=== PATIENT | female | born 1990 | race Caucasian/White ===

== ENCOUNTER 2018-02-20 19:33 | Inpatient (IN) ==
[2018-02-20] MEDS ORDERED: ACETAMINOPHEN 500 MG TABLET PO STA (21:20)
[2018-02-20] MEDS ORDERED: SODIUM CHLORIDE 0.9% 1,000 ML IV STA (21:20)
[2018-02-20] MEDS ORDERED: methylPREDNISolone SOD SUC 40 MG/1 ML VIAL IV STA (21:20)
[2018-02-20] MEDS ORDERED: ALBUTEROL/IPRATROPIUM 3 ML NEB RESP TX STA ×2 (21:20→21:48)
[2018-02-20] MEDS ORDERED: methylPREDNISolone SOD SUC 125 MG/2 ML VIAL IM STA (21:43)
[2018-02-20] MEDS ORDERED: ACETAMINOPHEN 500 MG TABLET ONE (21:52)
[2018-02-20] MEDS ORDERED: methylPREDNISolone SOD SUC 125 MG/2 ML VIAL ONE (21:52)
[2018-02-20 21:54] LABS: Basophils % 0.3 % (0.0-0.8); Eosinophils # 0.1 10*3/uL (0.0-0.87); Eosinophils % 0.3 % (0.00-10.9); Hematocrit 39.7 VOL% (35.7-47.0); Hemoglobin 13.1 GM/DL (12.0-16.0); Immature Granulocytes % 0.5 %; Immature Granulocytes Absolute 0.08 #; Lymphocytes # 4.7 10*3/uL (1.4-4.0); Lymphocytes % 31.5 % (21.3-54.2); Mean Corpuscular Hemoglobin 31 PG (27-34); Mean Corpuscular Volume 94.3 FL (87-102); Mean Platelet Volume 9.1 FL (9.6-12.0); Monocytes # 0.9 10*3/uL (0.11-0.8); Monocytes % 6.3 % (1.7-12.7); Neutrophils # 9.1 10*3/uL (1.4-7.4); Neutrophils % 61.1 % (38.7-73.9); Platelet Count 373 T/CUMM (130-400); Red Blood Count 4.21 MC/CUMM (3.8-5.5); Red Cell Distribution Width 13.3 % (9.3-17.3); White Blood Count 14.9 T/CUMM (4-12)
[2018-02-20 22:10] LABS: Calcium 9.4 MG/DL (8.5-10.1); Osmolality,Calculated 279.4 MOS/KG (273-304); Potassium 4.1 MMOL/L (3.5-5.1)
[2018-02-20] MEDS ORDERED: ALBUTEROL NEB SOLN 5 MG/ML 20 ML/BOTTLE CONT NEB STA (22:38)
[2018-02-20] MEDS ORDERED: LEVALBUTEROL 1.25 MG/3 ML NEB RESP TX STA (23:03)
[2018-02-20] MEDS ORDERED: NICOTINE 21 MG/24 HR PATCH TRANSDERM PRN (23:53)
[2018-02-20] MEDS ORDERED: guaiFENesin/DM ER 600-30 MG TABLET PO PRN (23:53)
[2018-02-20] MEDS ORDERED: ONDANSETRON 4 MG/2 ML VIAL IV PRN (23:53)
[2018-02-20] MEDS ORDERED: diphenhydrAMINE CAP 25 MG CAPSULE PO PRN (23:53)
[2018-02-20] MEDS ORDERED: ACETAMINOPHEN 325 MG TABLET PO PRN (23:53)
[2018-02-20] MEDS ORDERED: guaiFENesin/CODEINE 5 ML LIQUID PO PRN (23:56)
[2018-02-20] MEDS ORDERED: BENZONATATE 100 MG CAPSULE PO PRN (23:56)
[2018-02-21] MEDS ORDERED: MAGNESIUM SULF RIDER 1 GM in PREMIX 1 EACH IV ONE (02:00)
[2018-02-21] MEDS: ALBUTEROL/IPRATROPIUM 3 ML NEB RESP TX SCH ×6 (02:33→23:08)
[2018-02-21] MEDS: SODIUM CHLORIDE 0.9% 1,000 ML IV SCH ×2 (03:55→17:49)
[2018-02-21] MEDS ORDERED: ALBUTEROL 2.5 MG/3 ML NEB RESP TX PRN (05:28)
[2018-02-21] MEDS: MORPHINE 4 MG/1 ML VIAL IV PRN (06:04)
[2018-02-21] MEDS: AZITHROMYCIN INJ 500 MG in SODIUM CHLORIDE 0.9% 250 ML IV SCH (06:56)
[2018-02-21 07:14] LABS: Basophils % 0.2 % (0.0-0.8); Hematocrit 38.8 VOL% (35.7-47.0); Hemoglobin 12.7 GM/DL (12.0-16.0); Immature Granulocytes % 1.2 %; Immature Granulocytes Absolute 0.14 #; Lymphocytes # 1.7 10*3/uL (1.4-4.0); Lymphocytes % 14.7 % (21.3-54.2); Mean Corpuscular HGB Conc 32.7 GM/DL (32-36); Mean Corpuscular Hemoglobin 31 PG (27-34); Mean Corpuscular Volume 95.1 FL (87-102); Mean Platelet Volume 9.2 FL (9.6-12.0); Monocytes # 0.3 10*3/uL (0.11-0.8); Monocytes % 2.7 % (1.7-12.7); Neutrophils # 9.4 10*3/uL (1.4-7.4); Neutrophils % 81.2 % (38.7-73.9); Platelet Count 351 T/CUMM (130-400); Red Blood Count 4.08 MC/CUMM (3.8-5.5); Red Cell Distribution Width 13.3 % (9.3-17.3); White Blood Count 11.5 T/CUMM (4-12)
[2018-02-21] MEDS: PANTOPRAZOLE 40 MG TABLET PO SCH (08:03)
[2018-02-21] MEDS: ALPRAZolam 0.25 MG TABLET PO SCH ×2 (08:03→21:42)
[2018-02-21] MEDS: cefTRIAXone 1,000 MG in SYRINGE 1 EACH IV SCH (13:37)
[2018-02-21] MEDS: MONTELUKAST 10 MG TABLET PO SCH ×2 (13:37→21:42)
[2018-02-21] MEDS: NICOTINE 21 MG/24 HR PATCH TRANSDERM SCH (13:37)
[2018-02-21] MEDS ORDERED: ESCITALOPRAM 10 MG TABLET PO SCH (21:00)
[2018-02-22] MEDS: MORPHINE 4 MG/1 ML VIAL IV PRN ×3 (01:05→22:51)
[2018-02-22] MEDS: ALBUTEROL/IPRATROPIUM 3 ML NEB RESP TX SCH ×6 (03:22→23:34)
[2018-02-22] MEDS ORDERED: ALPRAZolam 0.25 MG TABLET PO ONE (04:44)
[2018-02-22] MEDS: methylPREDNISolone SOD SUC 40 MG/1 ML VIAL IV SCH ×3 (06:18→22:01)
[2018-02-22] MEDS: AZITHROMYCIN INJ 500 MG in SODIUM CHLORIDE 0.9% 250 ML IV SCH (06:18)
[2018-02-22] MEDS: SODIUM CHLORIDE 0.9% 1,000 ML IV SCH ×2 (09:26→18:17)
[2018-02-22] MEDS: NICOTINE 21 MG/24 HR PATCH TRANSDERM SCH (09:27)
[2018-02-22] MEDS: MONTELUKAST 10 MG TABLET PO SCH ×2 (09:27→21:59)
[2018-02-22] MEDS: ALPRAZolam 0.25 MG TABLET PO SCH ×2 (09:27→21:59)
[2018-02-22] MEDS: PANTOPRAZOLE 40 MG TABLET PO SCH (09:27)
[2018-02-22 13:54] LABS: ABG Base Excess -4.4 MMOL/L (-2.5-2.5); ABG HCO3 20.8 MMOL/L (20-26); ABG Oxygen Saturation 96.8 % (95-100); ABG PCO2 34.2 MM HG (35-48); ABG PH 7.375 (7.35-7.45); ABG PO2 83.8 MM HG (80-95); ABG TCO2 17.4 MMOL/L (23-27)
[2018-02-22] MEDS: cefTRIAXone 1,000 MG in SYRINGE 1 EACH IV SCH (14:14)
[2018-02-22] MEDS: ENOXAPARIN 40 MG/0.4 ML SYRINGE SUBCUT SCH (14:15)
[2018-02-22] MEDS: BENZONATATE 100 MG CAPSULE PO SCH ×2 (14:16→21:59)
[2018-02-22] MEDS: DORNASE ALFA 2.5 MG/2.5 ML VIAL RESP TX SCH ×2 (15:19→19:31)
[2018-02-23] MEDS: ALBUTEROL/IPRATROPIUM 3 ML NEB RESP TX SCH ×5 (03:30→19:20)
[2018-02-23] MEDS: methylPREDNISolone SOD SUC 40 MG/1 ML VIAL IV SCH ×2 (05:12→13:23)
[2018-02-23 06:11] LABS: Osmolality,Calculated 279.5 MOS/KG (273-304); Potassium 4.4 MMOL/L (3.5-5.1)
[2018-02-23] MEDS: AZITHROMYCIN INJ 500 MG in SODIUM CHLORIDE 0.9% 250 ML IV SCH (06:20)
[2018-02-23] MEDS: DORNASE ALFA 2.5 MG/2.5 ML VIAL RESP TX SCH ×2 (07:05→19:28)
[2018-02-23 07:09] LABS: Basophils # 0.1 10*3/uL (0.0-0.2); Basophils % 0.2 % (0.0-0.8); Hematocrit 39.3 VOL% (35.7-47.0); Hemoglobin 12.8 GM/DL (12.0-16.0); Immature Granulocytes % 2.1 %; Immature Granulocytes Absolute 0.48 #; Lymphocytes # 2.5 10*3/uL (1.4-4.0); Lymphocytes % 10.7 % (21.3-54.2); Mean Corpuscular HGB Conc 32.6 GM/DL (32-36); Mean Corpuscular Hemoglobin 31 PG (27-34); Mean Corpuscular Volume 95.4 FL (87-102); Mean Platelet Volume 9.7 FL (9.6-12.0); Monocytes # 1.3 10*3/uL (0.11-0.8); Monocytes % 5.4 % (1.7-12.7); Neutrophils # 18.9 10*3/uL (1.4-7.4); Neutrophils % 81.6 % (38.7-73.9); Platelet Count 416 T/CUMM (130-400); Red Blood Count 4.12 MC/CUMM (3.8-5.5); Red Cell Distribution Width 13.5 % (9.3-17.3); White Blood Count 23.1 T/CUMM (4-12)
[2018-02-23 07:28] LABS: Band Neutrophils 2 % (0-10); Hypochromasia 1+; Lymphocytes 11 % (20-55); Platelet Estimate Adequate; Segmented Neutrophils 83 % (50-85); Total Cells Counted 100
[2018-02-23] MEDS: NICOTINE 21 MG/24 HR PATCH TRANSDERM SCH (08:59)
[2018-02-23] MEDS: BENZONATATE 100 MG CAPSULE PO SCH ×3 (09:00→22:50)
[2018-02-23] MEDS: ALPRAZolam 0.25 MG TABLET PO SCH ×2 (09:00→22:50)
[2018-02-23] MEDS: PANTOPRAZOLE 40 MG TABLET PO SCH (09:00)
[2018-02-23] MEDS: MONTELUKAST 10 MG TABLET PO SCH ×2 (09:00→22:50)
[2018-02-23] MEDS: cefTRIAXone 1,000 MG in SYRINGE 1 EACH IV SCH (13:23)
[2018-02-23] MEDS: ENOXAPARIN 40 MG/0.4 ML SYRINGE SUBCUT SCH (13:24)
[2018-02-23] MEDS: SODIUM CHLORIDE 0.9% 1,000 ML IV SCH (13:24)
[2018-02-24] MEDS: ALBUTEROL/IPRATROPIUM 3 ML NEB RESP TX SCH ×3 (00:36→08:55)
[2018-02-24] MEDS ORDERED: ALPRAZolam 0.25 MG TABLET PO ONE (03:30)
[2018-02-24] MEDS: AZITHROMYCIN INJ 500 MG in SODIUM CHLORIDE 0.9% 250 ML IV SCH (06:50)
[2018-02-24 07:54] VITALS: BP 133/67
[2018-02-24] MEDS: BENZONATATE 100 MG CAPSULE PO SCH (08:21)
[2018-02-24] MEDS: MONTELUKAST 10 MG TABLET PO SCH (08:21)
[2018-02-24] MEDS: PANTOPRAZOLE 40 MG TABLET PO SCH (08:21)
[2018-02-24] MEDS: ALPRAZolam 0.25 MG TABLET PO SCH (08:21)
[2018-02-24] MEDS: NICOTINE 21 MG/24 HR PATCH TRANSDERM SCH (08:29)
[2018-02-24] MEDS: DORNASE ALFA 2.5 MG/2.5 ML VIAL RESP TX SCH (08:55)
[2018-02-24] MEDS ORDERED: predniSONE 20 MG TABLET PO SCH (09:00)
== END 2018-02-24 10:55 | disposition home or self-care (01) | DRG 202 ==
LOC: N.EDINP 19:33 → N.ED 19:33 → N.TELEN 02-21 00:41
PROVIDERS: ADMIT Internal Medicine; ATTEND Internal Medicine

== ENCOUNTER 2019-05-19 23:35 | Observation (INO) ==
[2019-05-20] MEDS ORDERED: SODIUM CHLORIDE 0.9% 1,000 ML IV STA (00:20)
[2019-05-20] MEDS ORDERED: ALBUTEROL/IPRATROPIUM 3 ML NEB RESP TX STA ×2 (00:20→01:17)
[2019-05-20] MEDS ORDERED: methylPREDNISolone SOD SUC 125 MG/2 ML VIAL IV STA (00:20)
[2019-05-20 01:31] LABS: Alanine Aminotransferase 21 U/L (13-56); Albumin 3.4 G/DL (3.4-5.0); Alkaline Phosphatase 97 U/L (45-117); Aspartate Amino Transferase 9 U/L (0-37); Bilirubin,Total < 0.39 MG/DL (0.2-1.0); Blood Urea Nitrogen 7 MG/DL (7-18); Calcium 9.6 MG/DL (8.5-10.1); Estimated Glom Filtration Rate 141 ML/MIN; Glucose 134 MG/DL (74-106); Osmolality,Calculated 274.7 MOS/KG (273-304)
[2019-05-20 01:46] LABS: Basophils % 0.3 % (0.0-0.8); Eosinophils # 0.1 10*3/uL (0.0-0.87); Eosinophils % 0.8 % (0.00-10.9); Hematocrit 39.5 VOL% (35.7-47.0); Hemoglobin 13.4 GM/DL (12.0-16.0); Immature Granulocytes % 0.4 %; Immature Granulocytes Absolute 0.05 #; Lymphocytes # 3.8 10*3/uL (1.4-4.0); Lymphocytes % 31.3 % (21.3-54.2); Mean Corpuscular HGB Conc 33.9 GM/DL (32-36); Mean Corpuscular Volume 94.3 FL (87-102); Mean Platelet Volume 9.7 FL (9.6-12.0); Monocytes % 11.3 % (1.7-12.7); Neutrophils % 55.9 % (38.7-73.9); Platelet Count 354 T/CUMM (130-400); Red Blood Count 4.19 MC/CUMM (3.8-5.5); Red Cell Distribution Width 12.4 % (9.3-17.3); White Blood Count 12.2 T/CUMM (4-12)
[2019-05-20] MEDS ORDERED: ONDANSETRON 4 MG/2 ML VIAL IV PRN (04:27)
[2019-05-20] MEDS ORDERED: ACETAMINOPHEN 325 MG TABLET PO PRN (04:27)
[2019-05-20] MEDS ORDERED: ALBUTEROL 2.5 MG/3 ML NEB RESP TX PRN (04:30)
[2019-05-20] MEDS ORDERED: POTASSIUM CHLORIDE 20 MEQ TABLET PO ONE (07:01)
[2019-05-20] MEDS: ALBUTEROL 2.5 MG/3 ML NEB RESP TX SCH ×3 (07:30→19:35)
[2019-05-20] MEDS: methylPREDNISolone SOD SUC 125 MG/2 ML VIAL IV SCH ×3 (09:00→20:48)
[2019-05-20] MEDS: ENOXAPARIN 40 MG/0.4 ML SYRINGE SUBCUT SCH (09:00)
[2019-05-20] MEDS: PANTOPRAZOLE 40 MG TABLET PO SCH (09:01)
[2019-05-20] MEDS: BUDESONIDE/FORMOTEROL 160-4.5 INHALER 6 GM INH SCH ×2 (09:01→20:48)
[2019-05-20] MEDS: AZITHROMYCIN 250 MG TABLET PO SCH (09:01)
[2019-05-20] MEDS: NICOTINE 21 MG/24 HR PATCH TRANSDERM SCH (15:06)
[2019-05-20] MEDS: buPROPion XL 150 MG TABLET PO SCH (15:06)
[2019-05-21] MEDS: ALBUTEROL 2.5 MG/3 ML NEB RESP TX SCH ×2 (00:14→07:33)
[2019-05-21] MEDS: methylPREDNISolone SOD SUC 125 MG/2 ML VIAL IV SCH ×2 (02:06→09:09)
[2019-05-21 05:50] LABS: Basophils % 0.1 % (0.0-0.8); Hematocrit 39.2 VOL% (35.7-47.0); Hemoglobin 13.2 GM/DL (12.0-16.0); Immature Granulocytes % 1.6 %; Immature Granulocytes Absolute 0.29 #; Lymphocytes # 2.2 10*3/uL (1.4-4.0); Lymphocytes % 12.2 % (21.3-54.2); Mean Corpuscular HGB Conc 33.7 GM/DL (32-36); Mean Platelet Volume 9.4 FL (9.6-12.0); Monocytes % 4.4 % (1.7-12.7); Neutrophils % 81.7 % (38.7-73.9); Platelet Count 353 T/CUMM (130-400); Red Blood Count 4.17 MC/CUMM (3.8-5.5); Red Cell Distribution Width 12.6 % (9.3-17.3); White Blood Count 17.7 T/CUMM (4-12)
[2019-05-21 06:20] LABS: Albumin 3.2 G/DL (3.4-5.0); Bilirubin,Total 0.4 MG/DL (0.2-1.0); Calcium 9.3 MG/DL (8.5-10.1); Osmolality,Calculated 278.5 MOS/KG (273-304)
[2019-05-21 07:52] VITALS: BP 117/64
[2019-05-21] MEDS: NICOTINE 21 MG/24 HR PATCH TRANSDERM SCH (09:09)
[2019-05-21] MEDS: AZITHROMYCIN 250 MG TABLET PO SCH (09:09)
[2019-05-21] MEDS: ENOXAPARIN 40 MG/0.4 ML SYRINGE SUBCUT SCH (09:09)
[2019-05-21] MEDS: PANTOPRAZOLE 40 MG TABLET PO SCH (09:09)
[2019-05-21] MEDS: buPROPion XL 150 MG TABLET PO SCH (09:09)
[2019-05-21] MEDS: BUDESONIDE/FORMOTEROL 160-4.5 INHALER 6 GM INH SCH (09:22)
[2019-05-21] MEDS ORDERED: NICOTINE 21 MG/24 HR PATCH TRANSDERM SCH (13:00)
== END 2019-05-21 11:20 | disposition home or self-care (01) ==
LOC: N.EDINP 23:35 → N.ED 23:35 → N.2E 05-20 04:41
PROVIDERS: ADMIT Internal Medicine; ATTEND Internal Medicine